=== PATIENT | male | born 1945 | race Asian ===

== ENCOUNTER 2019-10-03 02:48 | Inpatient (IN) | payer MEDICARE, OTHER ==
[~2019-10-03] VITALS: Ht 167.6 cm; Wt 70.4 kg
[~2019-10-03 02:48] MED LIST: LOPRESSOR 550 MG/TAB PO; NEXIUM40 MG PO
[2019-10-03] MEDS ORDERED: PROTONIX 40MG T40 MG PO (04:49)
[2019-10-03] MEDS ORDERED: CIALIS10 MG PO (04:50)
[2019-10-03] MEDS ORDERED: ASPIRIN 81M81 MG/TA2 PO ×2 (04:50→18:04)
[2019-10-03] MEDS ORDERED: CALCIUM CARB500 MG PO (04:51)
[2019-10-03] MEDS ORDERED: PRILOTC (04:52)
[2019-10-03] MEDS ORDERED: MAG-OX 400400 MG/TAB PO (04:53)
[2019-10-03] MEDS ORDERED: LIDODERM 5% PATC1 EA TP (04:54)
[2019-10-03] MEDS ORDERED: VOLTAREN GEL 1%1 TU (04:56)
[2019-10-03 05:00] VITALS: BP 128/75; PULSE 81; TEMP 98.3
[2019-10-03] MEDS ORDERED: LIPITOR 40MG TA40 MG PO (05:00)
[2019-10-03] MEDS ORDERED: XYOSTED100 MG/0.5 SQ (05:00)
[2019-10-03] MEDS ORDERED: ALAVERT10 M1 PO (05:01)
[2019-10-03] MEDS ORDERED: CLOTRIM ANTIFUNGAL1% TP (05:02)
[2019-10-03] MEDS ORDERED: COZAAR 25MG25 MG/TAB PO (05:03)
[2019-10-03] MEDS ORDERED: OMEGA-31 SGL PO (05:04)
[2019-10-03] MEDS ORDERED: HYGROTON 2525 MG/TAB (05:05)
[2019-10-03] MEDS ORDERED: VITAMIN D31000 I1 PO (05:05)
--- NOTE | 2019-10-03 05:25 | NUR ---
Pt arrive to the floor 0435 via stretcher. Pt ambulated to bed from stretcher. Pt stated he is not in pain. Pt has NG tube placed. Pt has his call light within reach.
--- NOTE | 2019-10-03 06:18 | NUR ---
Pt ambulated to the bathroom and was sittin gback in bed. I went to get the pt a new armband so I could scan his medictions. Pt began to cough as i was at the nurse station. When back to supply chain logistics manager pt NG tube and hang fluids and pt was holding his NG tube in his hand. Stated that he was so sorry but pulled it out by mistake. Report was given to DANIEL Gilmore and she was informed about the pt NG not in. Pt is currently sitting up in bed and has his call light within reach.
--- NOTE | 2019-10-03 06:55 | NUR ---
Reported off to DANIEL Gilmore. Pt is currently sitting up in bed awake. Pt has his call light within reach.
--- NOTE | 2019-10-03 07:01 | NUR ---
Lying in bed with eyes open. Patient explains that he was coughing earlier and when he went to blow his nose the NG tube came out. Patient denies pain or nausea at this time. Abd is rounded but soft, bowel sounds heard in all quadrants. Patient denies further needs at this time.
[2019-10-03 07:26] VITALS: BP 118/66; PULSE 83; TEMP 97.8
--- NOTE | 2019-10-03 08:27 | NUR ---
Patient up to bathroom, urinates and says that he passed a lot of gas. No bowel movement. Patient returns to bed. Denies needs at this time.
--- NOTE | 2019-10-03 09:46 | NUR ---
Patient up to bathroom. Was able to void and he says that he passed gas a couple times. Returns to bed. Voices no further needs at this time.
--- NOTE | 2019-10-03 09:58 | NUR ---
Job Interviewer met with patient to discuss discharge planning. Patient lives in [place] with his , Cindy (ph#[phone]). Patient receives primary care and medications from [facility]. Patient does not use any DME and reports independence with ADLS. Patient does not have Advance Directives and reports he needs to meet with an consumer attorney to set up a living will. Patient plans to return home upon discharge. SW will continue to follow for any discharge needs.
[2019-10-03 12:02] VITALS: BP 126/82; PULSE 83; TEMP 98.8
--- NOTE | 2019-10-03 12:58 | NUR ---
Lying in bed with eyes open watching TV and talking on cell phone. Denies pain or nausea. Explains that his stomach "feels tired like I worked out". Fresh ice chips provided. Patient denies further needs at this time.
--- NOTE | 2019-10-03 14:03 | NUR ---
Lying in bed with eyes closed. Respirations even and unlabored. No signs or symptoms of discomfort noted.
[2019-10-03 15:58] VITALS: BP 112/73; PULSE 86; TEMP 98.8
--- NOTE | 2019-10-03 16:11 | NUR ---
Lying in bed with eyes open. Denies pain, nausea, or vomiting. Says his stomach still feels like he "worked out". Patient denies needs at this time.
[2019-10-03 19:27] VITALS: BP 113/74; PULSE 86; TEMP 99.2
--- NOTE | 2019-10-03 20:00 | NUR ---
Received report from DANIEL Gilmore. Pt currently lying in bed sleeping pt has his call light within reach and his bed is in lowest position.
--- NOTE | 2019-10-03 21:35 | NUR ---
During shift assessment I asked pt if he takes any medications at night. He stated that he does not take any at night. After looking over his medications I did contact and asked if pt has medications that he usually take at night is it ok to have them start tonight. Dr. Vogt was ok with this. I called him at 2020. I went back into pt's room and asked him when does he usually take all of his medications. He stated he takes them all in the morning and he doesn't want to take any medications tonight. Pt vitals were assessed at this time and they were all within normal limits. Pt also stated that he usually doesn't take his medications every day. I informed him yaz while in the hospital he can refuse medications but we go by the medication list that he gives us. Pt did agree and was happy that I informed him that we had his mediction list. He is currently lying in bed. He states that he feels good. He has one small loose bowel movement tonight. He has been passing a lot of gas. Pt stated he would call if he needed something he has his call light within reach and his bed is in lowest position. Pt is independent in his room.
[2019-10-04] VITALS: BP 115/73; PULSE 74; TEMP 98.6
[2019-10-04 03:55] VITALS: BP 116/70; PULSE 80; TEMP 99.1
--- NOTE | 2019-10-04 06:26 | NUR ---
Pt has slept well during the night. Pt has been ambulating to the restroom during the night. Pt did have a small loose stool. Pt stated that he is not having pain and this time. He requested to have a warm blanket and he was given a blanket at this time. Pt has his call light within reach and his bed is in lowest positiion .
[2019-10-04 07:09] LABS: BASO % 0.2 % (0.0-2.0); EOS # 0.2 (0.0-0.7); EOS % 1.8 % (0-4.0); GRAN # 5.9 (1.4-6.5); HEMATOCRIT 39.9 % (42.0-52.0); HEMOGLOBIN 12.9 g/dl (13.5-18.0); LYMPH # 1.4 (1.2-3.4); LYMPH % 16.8 % (20.0-51.0); MEAN CELL VOLUME 94 fl (80.0-100.0); MEAN CORPUSCULAR HEMOGLOBIN 30 pg (27.0-31.0); MEAN CORPUSCULAR HGB CONC 32 g/dl (33.0-37.0); MONO # 0.7 (0.1-0.6); PLATELET COUNT 134 K/mm3 (130-400); RED BLOOD COUNT 4.25 M/mm3 (4.20-5.60); REDCELL DISTRIBUTION WIDTH-CV 14.7 % (11.5-14.5)
[2019-10-04 07:33] LABS: CALCIUM 8.3 mg/dL (8.4-10.2); CREATININE, serum 0.7 (0.66-1.25); POTASSIUM 3.2 mmol/L (3.4-5.0)
[2019-10-04 07:45] VITALS: BP 116/81; PULSE 58; TEMP 98.1
--- NOTE | 2019-10-04 08:41 | NUR ---
Patient sitting up at edge of bed eating breakfast. rounded orders received. Iv to Int. He is tolerating general diet tray. He denies nausea & pain. He denies shortness of breath. Martin reyna.
--- NOTE | 2019-10-04 09:24 | NUR ---
K+ replaced per orders. We again reviewed home med list, he is not completely sure of his home medications.
--- NOTE | 2019-10-04 11:04 | NUR ---
Patient going to take shower. continues with K+ replacement.
[2019-10-04 12:37] VITALS: BP 122/64; PULSE 79; TEMP 98
--- NOTE | 2019-10-04 15:34 | NUR ---
Patient ready for discharge. Dr. Diallo notified & orders obtained. We reviewed all paperwork. He denies questions & concerns. Patient freind here to pick him up.
== END 2019-10-04 15:35 | disposition home or self-care (01) | DRG 390 ==
LOC: SURG 02:48
PROVIDERS: ADMIT Surgery
DX: K56.609 Unspecified intestinal obstruction, unspecified as to partial versus complete obstruction (principal); I10 Essential (primary) hypertension; I25.10 Atherosclerotic heart disease of native coronary artery without angina pectoris; Z79.82 Long term (current) use of aspirin
CPT/HCPCS: J7120

== ENCOUNTER 2020-04-06 04:59 | Emergency (ER) | payer MEDICARE, OTHER ==
[~2020-04-06] VITALS: Ht 167.6 cm; Wt 70.9 kg
[~2020-04-06 04:59] MED LIST changes: +ALAVERT10 M1 PO; +ASPIRIN 81M81 MG/TA2 PO; +CALCIUM CARB500 MG PO; +CIALIS10 MG PO; +CLOTRIM ANTIFUNGAL1% TP; +COZAAR 25MG25 MG/TAB PO; +HYGROTON 2525 MG/TAB; +LIDODERM 5% PATC1 EA TP; +LIPITOR 40MG TA40 MG PO; +MAG-OX 400400 MG/TAB PO; +OMEGA-31 SGL PO; +PRILOTC; +PROTONIX 40MG T40 MG PO; +VITAMIN D31000 I1 PO; +VOLTAREN GEL 1%1 TU; +XYOSTED100 MG/0.5 SQ
[2020-04-06 05:08] VITALS: TEMP 98
[2020-04-06 09:06] LABS: BASO % 0.4 % (0.0-2.0); EOS # 0.2 (0.0-0.7); EOS % 2.4 % (0-4.0); GRAN # 6.1 (1.4-6.5); GRAN % 75.4 % (42.2-75.2); HEMATOCRIT 39.8 % (42.0-52.0); HEMOGLOBIN 13.3 g/dl (13.5-18.0); MEAN CELL VOLUME 91 fl (80.0-100.0); MEAN CORPUSCULAR HEMOGLOBIN 30 pg (27.0-31.0); MEAN CORPUSCULAR HGB CONC 33 g/dl (33.0-37.0); MEAN PLATELET VOLUME 10.2 fl (7.4-10.4); MONO # 0.7 (0.1-0.6); MONO % 8.4 % (1.7-9.3); PLATELET COUNT 111 K/mm3 (130-400); RED BLOOD COUNT 4.38 M/mm3 (4.20-5.60); REDCELL DISTRIBUTION WIDTH-CV 14.3 % (11.5-14.5)
[2020-04-06 09:13] LABS: INR 1.2 (0.8-3.0); PROTHROMBIN TIME 13.4 SECONDS (9.7-12.8)
[2020-04-06 09:15] LABS: ALBUMIN 4.1 gm/dL (3.5-5.0); BILIRUBIN,TOTAL 0.9 mg/dL (0.0-1.0); CALCIUM 8.8 mg/dL (8.4-10.2); CREATININE, serum 0.68 (0.66-1.25); POTASSIUM 3.3 mmol/L (3.4-5.0); TOTAL PROTEIN 7.2 gm/dL (6.4-8.2)
[2020-04-06 12:03] LABS: COLLECTION METHOD CLEAN CATCH
[2020-04-06 12:10] LABS: PH 6 (5-8); SQUAMOUS EPITHELIAL None Seen /hpf; URINE APPEARANCE Clear; URINE BACTERIA None Seen /hpf; URINE BILIRUBIN Negative (NEGATIVE); URINE BLOOD Negative (NEGATIVE); URINE COLOR Straw; URINE GLUCOSE Negative (NEGATIVE); URINE KETONE Negative (NEGATIVE); URINE LEUKOCYTE ESTERASE Negative (NEGATIVE); URINE NITRATE Negative (NEGATIVE); URINE PROTEIN(semi-quant) Negative (NEGATIVE); URINE RBC None Seen /hpf; URINE UROBILINOGEN Negative (NEGATIVE)
[2020-04-06 17:15] VITALS: BP 131/96; PULSE 95
== END 2020-04-06 17:15 | disposition short-term general hospital (02) ==
LOC: COL.ER 04:59
PROVIDERS: Family Medicine
DX: K86.89 Other specified diseases of pancreas (principal); Z79.82 Long term (current) use of aspirin
CPT/HCPCS: Q9967

== ENCOUNTER 2020-07-03 12:13 | Inpatient (IN) | payer MEDICARE, OTHER ==
[2020-07-03] VITALS (180 sets, daily range): BP systolic 71–148; BP diastolic 51–86; PULSE 90–145; TEMP 98.4–99.4; O2SAT 71–100
[~2020-07-03] VITALS: Ht 167.6 cm; Wt 70.9 kg
[2020-07-03] MEDS ORDERED: MIRALAX PA17 GM/Dose PO (12:38)
[2020-07-03] MEDS ORDERED: PRILOSEC 20MG20 MG PO (12:38)
[2020-07-03] MEDS ORDERED: COLACE 100100 MG/CAP PO (12:39)
--- NOTE | 2020-07-03 16:08 | NUR ---
Patient transferred down from surgical floor accompanied by Yevgeniy Rn and ramon RN. Bedside report given to Franchesca. Patient on bipap at 100%, labored breathing, HR is SR 160's, BP elevated but wrong size cuff was on. CUff replaced and BP was normal. at bedside putting orders in, and he updated the patients . was consulted and will more than likely intubate patient.
--- NOTE | 2020-07-03 16:30 | NUR ---
at bedside to place central line. consent recieved from patient. Vital signs running every 5 minutes, time out recorded at 1640 and procedure started. Central line successfully placed at 1650 and confirmed with cxray at 1655, ok to use per .
[2020-07-03 16:35] LABS: ALBUMIN 3.2 gm/dL (3.5-5.0); CALCIUM 8.2 mg/dL (8.4-10.2); CREATININE, serum 0.59 (0.66-1.25); POTASSIUM 3.9 mmol/L (3.4-5.0); TOTAL PROTEIN 6.3 gm/dL (6.4-8.2)
--- NOTE | 2020-07-03 16:49 | NUR ---
PT TO ROOM 348 FROM PACU WITH REPORT FROM NICOL. PT UNSTABLE AT HANDOFF. TRANSFERED TO ICU 6 WITH REPORT TO DAVIE SANCHEZ.
[2020-07-03 17:07] LABS: ARTERIAL BLD GAS O2 SATURATION 95.8 % (92-100); ARTERIAL BLD GAS TCO2 CT 22.3; ARTERIAL BLOOD GAS BASE EXCESS -7.3 (-2-2); ARTERIAL BLOOD GAS HCO3 20.7 meq/L (22-26); ARTERIAL BLOOD GAS PCO2 51.9 mmHg (35-45); ARTERIAL BLOOD GAS pH 7.22 (7.35-7.45)
--- NOTE | 2020-07-03 17:10 | NUR ---
ORDER RECIEVED FROM DR. MUIR TO PULL NG TUBE. COMPLETED AT TIME OF ORDER. 1527. PT TOLERATED WELL. RT PLACED PT ON BIPAP AT THAT TIME.
[2020-07-03 17:13] LABS: BASO # 0.1 (0.0-0.2); BASO % 0.4 % (0.0-2.0); EOS % 0.3 % (0-4.0); GRAN # 11.6 (1.4-6.5); GRAN % 78.4 % (42.2-75.2); HEMATOCRIT 43.1 % (42.0-52.0); HEMOGLOBIN 13.5 g/dl (13.5-18.0); LYMPH # 2.5 (1.2-3.4); LYMPH % 16.8 % (20.0-51.0); MEAN CELL VOLUME 99 fl (80.0-100.0); MEAN CORPUSCULAR HEMOGLOBIN 31 pg (27.0-31.0); MEAN CORPUSCULAR HGB CONC 31 g/dl (33.0-37.0); MEAN PLATELET VOLUME 9.8 fl (7.4-10.4); MONO # 0.5 (0.1-0.6); MONO % 3.5 % (1.7-9.3); PLATELET COUNT 309 K/mm3 (130-400); RED BLOOD COUNT 4.35 M/mm3 (4.20-5.60); REDCELL DISTRIBUTION WIDTH-CV 15.6 % (11.5-14.5)
[2020-07-03 17:38] LABS: ARTERIAL BLD GAS O2 SATURATION 95.9 % (92-100); ARTERIAL BLD GAS TCO2 CT 22.1; ARTERIAL BLOOD GAS BASE EXCESS -2.5 (-2-2); ARTERIAL BLOOD GAS HCO3 21.1 meq/L (22-26); ARTERIAL BLOOD GAS PCO2 33.3 mmHg (35-45); ARTERIAL BLOOD GAS PO2 79.6 mmHg (80-100); ARTERIAL BLOOD GAS pH 7.42 (7.35-7.45)
--- NOTE | 2020-07-03 17:45 | NUR ---
at bedside to see patient. He talked to patient about intubation, art line placement and bronchoscopy. Verbal consent from patient was witnessed by me and DANIEL Tesfaye. Patient requested talk to his son, Rome, who is a doctor. Patient has no questions at this time.
--- NOTE | 2020-07-03 18:10 | NUR ---
COMMUNICATIONS LEAD, Karen, is at bedside to intubate patient. RT also at bedside. 100 mg of Propofol given followed by 100 of succycholine. Karen got the ET tube down at 1820, confirmed with bilateral breath sounds in all four lung sagastume. Radiolog called for cxray. ET is a 7.5, 22 at the lip. Cxray confirmed placement at 1825.
[2020-07-03 18:19] LABS: INR 1.2 (0.8-3.0); PROTHROMBIN TIME 13.8 SECONDS (9.7-12.8)
--- NOTE | 2020-07-03 18:45 | NUR ---
Bronchoscopy stared with Vishnu Polanco at bedside as well as RT. GISELA Yen also at bedside to place ART line. 10 mg of vec given per . Bronch done at 1848, specimen sent to lab.
--- NOTE | 2020-07-03 19:30 | NUR ---
Received bedside report from DANIEL Cedeno. All medications verified and all questions answered. Patient intubated and sedated in supine position. Patient on fentanyl, levophed, propofol. All VSS. Will resume care at this time.
--- NOTE | 2020-07-03 20:28 | NUR ---
Dr. Shelley called for update on patient. Nurse updated physician on patient status. No new orders at this time. Daphney stated he would be by in the morning to check on patient.
--- NOTE | 2020-07-03 23:04 | NUR ---
Patient hourly BG checks at 2100 and 2200 less than 180, order changed to Q4 hour glucose checks on low sliding scale.
[2020-07-04] VITALS (607 sets, daily range): BP systolic 72–137; BP diastolic 40–70; PULSE 90–105; TEMP 98.1–100; O2SAT 92–100
--- NOTE | 2020-07-04 00:53 | NUR ---
Patient had 1+ edema in BLE during 1999 assessment. During assessment nurse noted 3-4+ pitting edema in BLE. Nurse called BERTIN and spoke with education diagnostician providers nurse and stated patient is on sepsis protocol and received 2L NS bolus and is now alternating LR and NS at 150mls/hr. Stated BP is stable with current dose of levophed gtt running at 0.2mcg/kg/min or 50.6mls/hr. [facility] nurse stated she would relay information to education diagnostician physician. No new orders placed at this time.
[2020-07-04 00:56] LABS: ARTERIAL BLOOD GAS BASE EXCESS -4.4 (-2-2); ARTERIAL BLOOD GAS HCO3 19.5 meq/L (22-26); ARTERIAL BLOOD GAS PCO2 32.1 mmHg (35-45); ARTERIAL BLOOD GAS PO2 89.5 mmHg (80-100)
[2020-07-04 00:57] LABS: ARTERIAL BLD GAS O2 SATURATION 89.5 % (92-100)
--- NOTE | 2020-07-04 01:46 | NUR ---
Received orders from Dr. Adrian from [facility] to IN alternating LR/NS at 150mls/hr and change patient to NS at 50mls/hr.
[2020-07-04 05:25] LABS: MEAN CELL VOLUME 97 fl (80.0-100.0); MEAN CORPUSCULAR HGB CONC 33 g/dl (33.0-37.0); MEAN PLATELET VOLUME 9.5 fl (7.4-10.4); PLATELET COUNT 232 K/mm3 (130-400); RED BLOOD COUNT 3.49 M/mm3 (4.20-5.60); REDCELL DISTRIBUTION WIDTH-CV 15.9 % (11.5-14.5)
[2020-07-04 05:28] LABS: ARTERIAL BLD GAS O2 SATURATION 97.9 % (92-100); ARTERIAL BLOOD GAS BASE EXCESS -4.1 (-2-2); ARTERIAL BLOOD GAS HCO3 20.3 meq/L (22-26); ARTERIAL BLOOD GAS PO2 107.2 mmHg (80-100); ARTERIAL BLOOD GAS pH 7.38 (7.35-7.45)
[2020-07-04 05:29] LABS: HEMATOCRIT 33.9 % (42.0-52.0); HEMOGLOBIN 11.1 g/dl (13.5-18.0); MEAN CORPUSCULAR HEMOGLOBIN 32 pg (27.0-31.0)
[2020-07-04 05:36] LABS: ALBUMIN 2.3 gm/dL (3.5-5.0); BILIRUBIN,TOTAL 0.9 mg/dL (0.0-1.0); CALCIUM 7.2 mg/dL (8.4-10.2); CREATININE, serum 0.75 (0.66-1.25); MAGNESIUM 1.7 mg/dL (1.6-2.3); POTASSIUM 4.1 mmol/L (3.4-5.0); TOTAL PROTEIN 4.8 gm/dL (6.4-8.2)
[2020-07-04 05:43] LABS: BAND 59 % (0-10); LYMPHOCYTE 4 % (20.0-51.0); METAMYELOCYTE 1 % (0-0); MYELOCYTE 2 % (0-0); NEUTROPHILS 25 % (42.0-75.2); PLATELET ESTIMATE NORMAL (NORMAL)
--- NOTE | 2020-07-04 05:45 | NUR ---
Patient started on sedation vacation at 0545. Fentanyl and propofol rate decreased by half. Fentanyl at 1.3mls/hr and propofol at 10.1mls/hr. Patient withdraws from pain and is able to squeeze hands but unable to follow other commands. Patient appears calm and relaxed. VSS.
--- NOTE | 2020-07-04 06:49 | NUR ---
Patient appears relaxed and calm. Fentanyl and propofol rates not changed since beginning the sedation vacation. VS remain stable throughout sedation vacation. Will pass on report to day shift nurse.
--- NOTE | 2020-07-04 07:00 | NUR ---
RECEIVED REPORT FROM DANIEL PENA. ASSUMED CARE OF PT AT THIS TIME.
[2020-07-05] VITALS (684 sets, daily range): BP systolic 80–134; BP diastolic 54–78; PULSE 78–101; TEMP 97.9–98.9; O2SAT 79–100
[2020-07-05 05:00] LABS: BASO % 0.2 % (0.0-2.0); EOS # 0.1 (0.0-0.7); EOS % 0.3 % (0-4.0); GRAN # 13.9 (1.4-6.5); GRAN % 84.5 % (42.2-75.2); HEMOGLOBIN 10.3 g/dl (13.5-18.0); LYMPH # 0.6 (1.2-3.4); LYMPH % 3.6 % (20.0-51.0); MEAN CELL VOLUME 98 fl (80.0-100.0); MEAN CORPUSCULAR HEMOGLOBIN 31 pg (27.0-31.0); MEAN CORPUSCULAR HGB CONC 32 g/dl (33.0-37.0); MEAN PLATELET VOLUME 9.8 fl (7.4-10.4); MONO # 1.7 (0.1-0.6); MONO % 10.2 % (1.7-9.3); PLATELET COUNT 152 K/mm3 (130-400); RED BLOOD COUNT 3.28 M/mm3 (4.20-5.60)
[2020-07-05 05:08] LABS: ALBUMIN 2.2 gm/dL (3.5-5.0); CALCIUM 7.2 mg/dL (8.4-10.2); CREATININE, serum 0.64 (0.66-1.25); INR 1.6 (0.8-3.0); POTASSIUM 3.5 mmol/L (3.4-5.0); PROTHROMBIN TIME 18.3 SECONDS (9.7-12.8); TOTAL PROTEIN 4.7 gm/dL (6.4-8.2)
[2020-07-05 05:14] LABS: ARTERIAL BLD GAS O2 SATURATION 96.2 % (92-100); ARTERIAL BLD GAS TCO2 CT 23.3; ARTERIAL BLOOD GAS BASE EXCESS -1.9 (-2-2); ARTERIAL BLOOD GAS HCO3 22.2 meq/L (22-26); ARTERIAL BLOOD GAS PCO2 35.7 mmHg (35-45); ARTERIAL BLOOD GAS PO2 81.7 mmHg (80-100); ARTERIAL BLOOD GAS pH 7.41 (7.35-7.45)
--- NOTE | 2020-07-05 05:59 | NUR ---
Sedation returned to pre-sedation vacation level per titration protocol, pt able to open eyes, follow commands, use nonverbal communication to express abdominal pain and no other pain or needs required at this moment. Pt still requiring levophed gtt, if gtt interrupted BP quickly drops to systolic 60-70's. After gtt restated BP rapidly improves.
--- NOTE | 2020-07-05 07:30 | NUR ---
RECEIVED REPORT FROM DANIEL ADAMS. PATIENT TOLERATING VENT SETTINGS @ TV:450, MODE: 24, PEEP: 8, FiO2:30%, AND ETT NOTED @ 25 @ LIP. MANAGER [employer]ANCE IN PLACE. OGT NOTED @ 55CM WITH TUBE FEED @ 20mL/HR. FC PATENT AND DRAINING TO GRAVITY. ART LINE NOTED TO L RADIAL. VSS. SEE GTT FLOWSHEET.
--- NOTE | 2020-07-05 08:30 | NUR ---
RESIDUAL 0mL, TF INCREASED TO 30mL AN HOUR PER ORDERS.
--- NOTE | 2020-07-05 11:36 | NUR ---
SPOKE TO DR. FINN REGARD PATIENT'S IVF, POTASSIUM REPLACEMENT AND ELIMINATION NEEDS. SEE eMAR FOR NEW ORDERS.
--- NOTE | 2020-07-05 16:30 | NUR ---
RESIDUAL AT 10mL, TUBE FEED INCREASED TO 40mL AN HOUR PER ORDERS.
--- NOTE | 2020-07-05 16:56 | NUR ---
SW complete intake with spouse with call placed to [facility] [phone]. Spouse states patient and she live in [place]. PCP is Dr. Jayy Brooks in [place], medications from [place], and is able to afford his medications at this time. Spouse states that he recieves assistance from her usually for taking baths and assistance at times with walking, but will not use a walker or cane. Spouse states patient will not listen, but needs some assistance if he is able to leave the hospital to come home. SW will continue to follow.
--- NOTE | 2020-07-05 21:25 | NUR ---
Interventions documented at 2121 were performed at 1930.
--- NOTE | 2020-07-05 21:27 | NUR ---
Report recived from Demarco Tesfaye. Patient has fentanyl at 50, propofol at 25, Levophed at 0.11. His blood pressure is 127/54, heart rate at 84 NSR, and is sating 96%. The vent settings are: TV- 450; Peep-8; Fi02-30%; and a rate of 24. He is sedated but easily arousable. Blood sugar is 193. Tube feeding residual was 15. Tube feeding running at 40 cc/hr.
[2020-07-06] VITALS (786 sets, daily range): BP systolic 130–148; BP diastolic 66–92; PULSE 74–86; TEMP 98.2–99; O2SAT 94–100
[2020-07-06 04:30] LABS: HEMOGLOBIN 10.8 g/dl (13.5-18.0); MEAN CELL VOLUME 97 fl (80.0-100.0); MEAN CORPUSCULAR HEMOGLOBIN 32 pg (27.0-31.0); MEAN CORPUSCULAR HGB CONC 33 g/dl (33.0-37.0); PLATELET COUNT 153 K/mm3 (130-400); RED BLOOD COUNT 3.39 M/mm3 (4.20-5.60); REDCELL DISTRIBUTION WIDTH-CV 16.2 % (11.5-14.5)
[2020-07-06 04:41] LABS: ALBUMIN 2.3 gm/dL (3.5-5.0); CALCIUM 7.7 mg/dL (8.4-10.2); CREATININE, serum 0.55 (0.66-1.25); MAGNESIUM 2.3 mg/dL (1.6-2.3); PHOSPHOROUS 2.2 mg/dL (2.5-4.5); POTASSIUM 3.8 mmol/L (3.4-5.0)
[2020-07-06 04:48] LABS: PRE ALBUMIN 4.3 mg/dL (17.6-36.0)
[2020-07-06 04:49] LABS: ANISOCYTOSIS 1+; BAND 15 % (0-10); LYMPHOCYTE 5 % (20.0-51.0); NEUTROPHILS 77 % (42.0-75.2); OVALOCYTES 1+; POIKILOCYTOSIS 1+
[2020-07-06 04:50] LABS: BURR CELLS 1+; PLATELET ESTIMATE NORMAL (NORMAL); STOMATOCYTE 1+
[2020-07-06 05:10] LABS: ARTERIAL BLD GAS O2 SATURATION 96.3 % (92-100); ARTERIAL BLD GAS TCO2 CT 23.5; ARTERIAL BLOOD GAS BASE EXCESS -1.6 (-2-2); ARTERIAL BLOOD GAS HCO3 22.4 meq/L (22-26); ARTERIAL BLOOD GAS PCO2 35.2 mmHg (35-45); ARTERIAL BLOOD GAS PO2 84.8 mmHg (80-100); ARTERIAL BLOOD GAS pH 7.42 (7.35-7.45)
--- NOTE | 2020-07-06 05:45 | NUR ---
Pt tolerated CPAP 8 with PS as low as 6 for approx 10-15 minutes this morning while on sedation vacation. Pt's breaths became less consistant, many large volumes greather than 1000ml followed by a few breaths less than 150ml. Transitioned pt back to AC/VC after inconsistancy continued for a couple minutes. RN resumed sedation.
--- NOTE | 2020-07-06 06:43 | NUR ---
Lexis had an uneventful night. He tolerated his Vent settings very well. He is TV- 450; Peep of 8, Fi02 30%; rate of 24 on Assist control. He is on Fentanuyl of 50 mcg/hr; propofol at 20 mcg/kg/min; levophed at 0.07mcg/kg/min. His current blood pressure through the art line is 128/67 and the last BP cuff reading is 131/80. His art line flushes well and is at the 300 jenny. I tried titrating down on his levophed more but his blood pressure tends to drop very quickly so but 0.07 seems to be a good rate. When I attempted 0.06 his blood pressure immediently dropped to 90/50's so I increased it back to 0.07. His breathing trial went pretty well this morning, RT stated he took about 15 breaths a minute for about 15 minutes but then the rate started to decline. He got very agitated and we resumed the sedation. His current vitals are HR- 80; 02 Saturation 98%. RR 24, BP 131/69.
--- NOTE | 2020-07-06 17:50 | NUR ---
1700- Pt sedation was decreased for sedation vacation. 1734- PT is very agitated and not able to be consoled. Sedation is increased by one titration at this time. 1750- Pt appears to be comfortable. Will open eyes to name.
--- NOTE | 2020-07-06 19:04 | NUR ---
Report given to DANIEL Alatorre. Care relinquished at this time.
--- NOTE | 2020-07-06 20:00 | NUR ---
Assessment complete. Pt is on the ventilator. ETT is intact. LIJ TL is intact. RW INT is intact. Culver to DD is intact. OG tube is intact. 2SW restraints remain in place with good CMS in hands. Pt repositioned in bed. Call light within reach.
[2020-07-07] VITALS (640 sets, daily range): BP systolic 112–135; BP diastolic 57–85; PULSE 78–99; TEMP 98.4–99.5; O2SAT 91–100
[2020-07-07 04:43] LABS: HEMOGLOBIN 10.6 g/dl (13.5-18.0); MEAN CELL VOLUME 97 fl (80.0-100.0); MEAN CORPUSCULAR HEMOGLOBIN 31 pg (27.0-31.0); MEAN CORPUSCULAR HGB CONC 32 g/dl (33.0-37.0); MEAN PLATELET VOLUME 9.9 fl (7.4-10.4); PLATELET COUNT 180 K/mm3 (130-400); RED BLOOD COUNT 3.38 M/mm3 (4.20-5.60); REDCELL DISTRIBUTION WIDTH-CV 16.1 % (11.5-14.5)
[2020-07-07 04:46] LABS: HEMATOCRIT 32.9 % (42.0-52.0)
[2020-07-07 04:59] LABS: CALCIUM 7.4 mg/dL (8.4-10.2); CREATININE, serum 0.57 (0.66-1.25); POTASSIUM 4.2 mmol/L (3.4-5.0)
[2020-07-07 05:38] LABS: BAND 6 % (0-10); LYMPHOCYTE 11 % (20.0-51.0); NEUTROPHILS 80 % (42.0-75.2)
[2020-07-07 05:39] LABS: ANISOCYTOSIS 1+; HYPOCHROMIA 1+; PLATELET ESTIMATE NORMAL (NORMAL)
[2020-07-07 05:57] LABS: ARTERIAL BLD GAS O2 SATURATION 95.7 % (92-100); ARTERIAL BLD GAS TCO2 CT 27.5; ARTERIAL BLOOD GAS BASE EXCESS 2.1 (-2-2); ARTERIAL BLOOD GAS HCO3 26.3 meq/L (22-26); ARTERIAL BLOOD GAS PCO2 39.4 mmHg (35-45); ARTERIAL BLOOD GAS pH 7.44 (7.35-7.45)
--- NOTE | 2020-07-07 10:40 | NUR ---
Athletic Equipment Manager staffed with the patient's nurse. The patient remains intubated and to have a CPAP trial this day. SW contacted the patient's , Shirin to introduce oneself and provide an update.
--- NOTE | 2020-07-07 19:08 | NUR ---
Report given to DANIEL Alatorre.
--- NOTE | 2020-07-07 20:00 | NUR ---
Assessment complete. Pt is on ventilator. ETT is intact. LIJ TL is intact. RW INT is intact. OG tube is intact. Culver to DD is intact. 2SW restaints are in place with good CMS to hands. Pt had a large loose BM; pericare provided. Pt repositioned in bed. Call light within reach.
[2020-07-08] VITALS (656 sets, daily range): BP systolic 109–143; BP diastolic 60–78; PULSE 88–115; TEMP 97.2–99.7; O2SAT 73–100
[2020-07-08 05:45] LABS: ARTERIAL BLD GAS O2 SATURATION 96.4 % (92-100); ARTERIAL BLD GAS TCO2 CT 28.2; ARTERIAL BLOOD GAS PO2 81.3 mmHg (80-100); ARTERIAL BLOOD GAS pH 7.46 (7.35-7.45)
[2020-07-08 05:53] LABS: BASO % 0.2 % (0.0-2.0); GRAN # 7.3 (1.4-6.5); GRAN % 81.9 % (42.2-75.2); LYMPH # 0.4 (1.2-3.4); LYMPH % 4.8 % (20.0-51.0); MEAN CELL VOLUME 98 fl (80.0-100.0); MEAN CORPUSCULAR HGB CONC 32 g/dl (33.0-37.0); MONO # 0.7 (0.1-0.6); PLATELET COUNT 109 K/mm3 (130-400); RED BLOOD COUNT 2.89 M/mm3 (4.20-5.60); REDCELL DISTRIBUTION WIDTH-CV 16.2 % (11.5-14.5)
[2020-07-08 06:02] LABS: CALCIUM 7.3 mg/dL (8.4-10.2); CREATININE, serum 0.59 (0.66-1.25)
[2020-07-08 06:04] LABS: HEMATOCRIT 28.4 % (42.0-52.0); MEAN CORPUSCULAR HEMOGLOBIN 31 pg (27.0-31.0)
--- NOTE | 2020-07-08 06:31 | NUR ---
PT IS ON WEAN TRIAL JOSE EDUARDO WELL WITH NO DISTRESS NOTED AT THIS TIME. 5 OF PRESSURE SUPPORT.
--- NOTE | 2020-07-08 07:00 | NUR ---
Report received from DANIEL Alatorre. Patient sedation is cut in half and he is on weaning trial doing well.
--- NOTE | 2020-07-08 07:33 | NUR ---
Bedside shift report given to DANIEL Mcdermott.
[2020-07-08 08:41] LABS: ARTERIAL BLD GAS O2 SATURATION 94.4 % (92-100); ARTERIAL BLD GAS TCO2 CT 28.7; ARTERIAL BLOOD GAS BASE EXCESS 3.4 (-2-2); ARTERIAL BLOOD GAS HCO3 27.5 meq/L (22-26); ARTERIAL BLOOD GAS PCO2 39.8 mmHg (35-45); ARTERIAL BLOOD GAS pH 7.46 (7.35-7.45)
--- NOTE | 2020-07-08 09:00 | NUR ---
Dr. Mares see's patient and gives order to switch back to Assist Control mode d/t tachypnea with RR in high 30s. Patient also had another large loose stool and Dr. Mares gives order to place rectal tube for liquid stools.
--- NOTE | 2020-07-08 14:00 | NUR ---
Update given to Daughter, Margot. All questions answered and she is placed on speaker phone so she can talk to the patient.
[2020-07-08 16:19] LABS: CLOSTRIDIUM DIFF A/B NEG; CLOSTRIDIUM DIFF A/B INTERP No C.diff present
--- NOTE | 2020-07-08 19:05 | NUR ---
Report given to DANIEL Roberts.
--- NOTE | 2020-07-08 19:10 | NUR ---
Received report from DANIEL Mcdermott. Patient resting comfortably in bed at this time. Verified vent settings and sedation pumps at bedside. All vitals within normal limits. Bed in lowest position; all alarms on. No further needs noted.
[2020-07-09] VITALS (767 sets, daily range): BP systolic 127–182; BP diastolic 76–108; PULSE 84–121; TEMP 98.3–100.3; O2SAT 64–100
[2020-07-09 04:32] LABS: ARTERIAL BLD GAS O2 SATURATION 95.9 % (92-100); ARTERIAL BLD GAS TCO2 CT 29.7; ARTERIAL BLOOD GAS BASE EXCESS 4.4 (-2-2); ARTERIAL BLOOD GAS HCO3 28.5 meq/L (22-26); ARTERIAL BLOOD GAS PCO2 40.4 mmHg (35-45); ARTERIAL BLOOD GAS PO2 71.7 mmHg (80-100); ARTERIAL BLOOD GAS pH 7.47 (7.35-7.45)
[2020-07-09 04:46] LABS: MEAN CELL VOLUME 99 fl (80.0-100.0); MEAN CORPUSCULAR HGB CONC 32 g/dl (33.0-37.0); PLATELET COUNT 105 K/mm3 (130-400); RED BLOOD COUNT 3.04 M/mm3 (4.20-5.60); REDCELL DISTRIBUTION WIDTH-CV 16.7 % (11.5-14.5)
[2020-07-09 04:48] LABS: HEMOGLOBIN 9.5 g/dl (13.5-18.0); MEAN CORPUSCULAR HEMOGLOBIN 31 pg (27.0-31.0)
[2020-07-09 04:59] LABS: CALCIUM 7.4 mg/dL (8.4-10.2); CREATININE, serum 0.55 (0.66-1.25); POTASSIUM 3.5 mmol/L (3.4-5.0)
[2020-07-09 05:14] LABS: BAND 3 % (0-10); LYMPHOCYTE 20 % (20.0-51.0); NEUTROPHILS 66 % (42.0-75.2); NUCLEATED RED BLOOD CELL 5 (0-6); PLATELET ESTIMATE DECREASED (NORMAL)
[2020-07-09 05:15] LABS: ANISOCYTOSIS 1+; HYPOCHROMIA 2+
--- NOTE | 2020-07-09 05:59 | NUR ---
PT ON WEAN TRIAL JOSE EDUARDO WELL WITH NO DISTRESS NOTED AT THIS TIME
--- NOTE | 2020-07-09 09:50 | NUR ---
PT EXTUBATED OPER VORB FROM DR HAYNES. PT EXTUBATE TO 3L OXYMASK, AND AT THIS TIME IS STABLE. WILL CONTINUE TO MONITOR PT FOR CHANGES.
--- NOTE | 2020-07-09 13:23 | NUR ---
The patient is now extubated. PT/OT ordered.
--- NOTE | 2020-07-09 17:39 | NUR ---
PT extubated at 0847 this am. PT has been tolerating well with oxygen via NC. PT was able to walk with therapy today with a walker and gait belt. Currently patient c/o is back pain. PT states at home he uses "eletrical pulses" to help his pain. PT states his pain is from being in the [employer]. Pt is currently on 2L NC SPO2 of 97%.
--- NOTE | 2020-07-09 19:00 | NUR ---
Received report from DANIEL De La Cruz.
--- NOTE | 2020-07-09 19:14 | NUR ---
Pt report given to DANIEL Roberts. care relinquished at this time.
--- NOTE | 2020-07-09 21:30 | NUR ---
Patient's LIJ central line dressing noted to be peeling significantly at the edges. Dressing changed. Patient's linens also exchanged at this time. Denies any pain or discomfort. All vitals within normal limits. Patient on 0.5L oxygen via nasal cannula with oxygen saturations low-mid 90s. Tolerating well. No further needs noted.
[2020-07-10] VITALS (480 sets, daily range): BP systolic 140–154; BP diastolic 84–110; PULSE 97–108; TEMP 98.3–99.8; O2SAT 83–99
[2020-07-10 04:21] LABS: HEMOGLOBIN 10.4 g/dl (13.5-18.0); MEAN CORPUSCULAR HEMOGLOBIN 31 pg (27.0-31.0); MEAN CORPUSCULAR HGB CONC 33 g/dl (33.0-37.0); MEAN PLATELET VOLUME 10.3 fl (7.4-10.4); PLATELET COUNT 108 K/mm3 (130-400); RED BLOOD COUNT 3.33 M/mm3 (4.20-5.60); REDCELL DISTRIBUTION WIDTH-CV 16.7 % (11.5-14.5)
[2020-07-10 04:24] LABS: HEMATOCRIT 31.4 % (42.0-52.0); MEAN CELL VOLUME 94 fl (80.0-100.0)
[2020-07-10 04:30] LABS: CALCIUM 7.5 mg/dL (8.4-10.2); CREATININE, serum 0.53 (0.66-1.25); POTASSIUM 3.4 mmol/L (3.4-5.0)
[2020-07-10 04:42] LABS: BAND 20 % (0-10); EOSINOPHIL 1 % (0-4); LYMPHOCYTE 11 % (20.0-51.0); METAMYELOCYTE 3 % (0-0); NEUTROPHILS 59 % (42.0-75.2); POIKILOCYTOSIS 1+
[2020-07-10 04:43] LABS: ANISOCYTOSIS 1+; HYPOCHROMIA 1+; OVALOCYTES 1+; PLATELET ESTIMATE DECREASED (NORMAL)
--- NOTE | 2020-07-10 09:26 | NUR ---
Cristina with AE called stating pt had called her and he was concerned about insurance. [facility] had [facility] and [facility] had not been [facility] of [facility]. I spoke with Cristina on the phone-pt has MCR A/B as primary and for life. I told her we would not notify [facility] with MCR being primary. I then spoke with Mr. Dodson concerning this and answered all of his questions. He voiced understanding about his insurance coverage.
--- NOTE | 2020-07-10 10:17 | NUR ---
CONTACTED DR. HOWE TO ASK WHETHER PT CAN ADVANCE DIET FROM CLEAR LIQUID. STATES HE WILL VISIT PATIENT TODAY.
--- NOTE | 2020-07-10 12:20 | NUR ---
RECTAL TUBE LEAKING. REMOVED AT THIS TIME PER DR. HINKLE ORDERS. PT UP TO BEDSIDE COMMODE X2 ASSIST WITH STEADY GAIT USING GAIT BELT. OCCUPATION THERAPY WITH PT AND ASSISTED WITH SHAVING AND BRUSHING TEETH.
[2020-07-10] MEDS ORDERED: VITAMIN D31000 I1 PO (14:41)
[2020-07-10] MEDS ORDERED: ASPIRIN E.C. 8181 MG PO (14:42)
[2020-07-10] MEDS ORDERED: COZAAR 25MG25 MG/TAB PO (14:42)
[2020-07-10] MEDS ORDERED: LIPITOR 80MG80 MG PO (14:42)
[2020-07-10] MEDS ORDERED: OMEGA-3 1000 MG1 CAP PO (14:43)
[2020-07-10] MEDS ORDERED: HYGROTON 2525 MG/TAB PO (14:43)
[2020-07-10] MEDS ORDERED: K-TAB20 PO (14:44)
[2020-07-10] MEDS ORDERED: FLOMAX 0.40.4 MG/CAP PO (14:44)
[2020-07-10] MEDS ORDERED: CALCIUM 600 PLU1 TAB PO (14:44)
[2020-07-10] MEDS ORDERED: COMPAZINE 110 MG/TAB PO (14:45)
--- NOTE | 2020-07-10 15:29 | NUR ---
LEFT IJ CENTRAL LINE REMOVED PER DR. HAYNES. PRESSURE HELD TO SITE X5 MINUTES. CATHETER INTACT ON REMOVAL. ACCESSED PT'S PORT-A-CATH TO RIGHT SIDE OF CHEST WITH 19G 3/4IN NEEDLE. BLOOD RETURN NOTED AND FLUSHES WITHOUT RESISTANCE.
--- NOTE | 2020-07-10 15:34 | NUR ---
The patient continues to make progress with PT.
--- NOTE | 2020-07-10 16:30 | NUR ---
ROWLEY CATHETER REMOVED AT THIS TIME PER ORDER.
--- NOTE | 2020-07-10 18:15 | NUR ---
PT TRANSFERRED TO ROOM 351 VIA W/C ON 2L NC. TELEMETRY IN PLACE. DANIEL ARCOS AWARE OF PT ARRIVAL. DINNER TRAY DELIVERED TO ROOM 351.
--- NOTE | 2020-07-10 20:30 | NUR ---
Initial shift assessment done- VSS, Tele on, o2 at 2L/nc, states back is sore-- has heating pad to back,, Up to BSC with assist- very weak on feet- did have liquid, loose stool. Back to bed. Port to right chest. O2 at 2L/nc,
[2020-07-11 03:47] VITALS: BP 146/80; PULSE 82; TEMP 98.7
--- NOTE | 2020-07-11 06:00 | NUR ---
Did not sleep much during the night-- voiding well per urinal-- Did call Eleni AGUILAR during the night for pain meds- pt stated back pain was 02/14-- Mozier was ordered- was given one and did rest after that--- blood sugars very stable throughout the night- VSS
[2020-07-11 06:43] LABS: MEAN CELL VOLUME 98 fl (80.0-100.0); MEAN CORPUSCULAR HGB CONC 32 g/dl (33.0-37.0); MEAN PLATELET VOLUME 10.7 fl (7.4-10.4); PLATELET COUNT 106 K/mm3 (130-400); RED BLOOD COUNT 3.03 M/mm3 (4.20-5.60); REDCELL DISTRIBUTION WIDTH-CV 16.9 % (11.5-14.5)
[2020-07-11 06:56] LABS: CALCIUM 7.3 mg/dL (8.4-10.2); CREATININE, serum 0.57 (0.66-1.25); HEMATOCRIT 29.6 % (42.0-52.0); HEMOGLOBIN 9.6 g/dl (13.5-18.0); MEAN CORPUSCULAR HEMOGLOBIN 32 pg (27.0-31.0); POTASSIUM 3.4 mmol/L (3.4-5.0)
--- NOTE | 2020-07-11 08:15 | NUR ---
Shift assessment complete. Bed bath given and full bed change done. Pt up to chair eating breakfast at this time. A&Ox4. Heart RRR. Lungs CTA. NC at 2 lpm O2 with sats stable. Port to right chest w/o S/S complication, flushes well and good blood return. K pad in place to lower back due to chronic low back pain rated 4/10. Gauze/tegaderm over right IJ incision, dressing CDI. Pt denies needs. Call light in reach.
[2020-07-11 08:57] VITALS: BP 135/72; PULSE 90; TEMP 98.1
[2020-07-11 10:06] LABS: ANISOCYTOSIS 1+; BAND 7 % (0-10); EOSINOPHIL 2 % (0-4); HYPOCHROMIA 1+; LYMPHOCYTE 7 % (20.0-51.0); METAMYELOCYTE 1 % (0-0); MYELOCYTE 1 % (0-0); NEUTROPHILS 72 % (42.0-75.2); PLATELET ESTIMATE DECREASED (NORMAL)
[2020-07-11 13:23] VITALS: BP 130/80; PULSE 96; TEMP 98.3
[2020-07-11 16:30] VITALS: BP 127/81; PULSE 104; TEMP 97.9
--- NOTE | 2020-07-11 17:43 | NUR ---
Chronic back pain adequately relieved today with k pad and one administration of norco. Remains on 2 lpm O2 NC. No other complaints today.
[2020-07-11 20:00] VITALS: BP 131/81; PULSE 101; TEMP 98.8
--- NOTE | 2020-07-11 20:30 | NUR ---
Initial shift assessment done- states pain to back 08/15 at this time-- has on heating pad, has 1+ edema to lower extremities, has been up in chair-- now will get back to bed, o2 at 2L/nc, Tele on, kylee cath to right chest.
[2020-07-12] VITALS (7 sets, daily range): BP systolic 115–130; BP diastolic 73–86; PULSE 94–111; TEMP 98.2–99.4
--- NOTE | 2020-07-12 06:14 | NUR ---
Slept well last night, was medicated x2 with [place] during the night for back pain-- did use his TENS unit from home a few times during the night with good results for pain control,VSS
[2020-07-12 06:29] LABS: MEAN CELL VOLUME 94 fl (80.0-100.0); MEAN CORPUSCULAR HGB CONC 33 g/dl (33.0-37.0); MEAN PLATELET VOLUME 10.9 fl (7.4-10.4); PLATELET COUNT 129 K/mm3 (130-400); RED BLOOD COUNT 3.22 M/mm3 (4.20-5.60); REDCELL DISTRIBUTION WIDTH-CV 16.3 % (11.5-14.5)
[2020-07-12 06:30] LABS: CALCIUM 7.6 mg/dL (8.4-10.2); CREATININE, serum 0.55 (0.66-1.25); POTASSIUM 3.1 mmol/L (3.4-5.0)
[2020-07-12 06:33] LABS: HEMATOCRIT 30.3 % (42.0-52.0); HEMOGLOBIN 9.9 g/dl (13.5-18.0); MEAN CORPUSCULAR HEMOGLOBIN 31 pg (27.0-31.0)
--- NOTE | 2020-07-12 07:50 | NUR ---
Shift assessment complete. Pt assisted x1 to chair, up eating breakfast at this time. Reports adequate pain relief from combination of norco, TENS unit, and kpad. Heart RRR. Lungs CTA. A&Ox4. Left IJ dressing CDI. Remains on 2 lpm O2 NC. Denies other needs at this time. Continuing to monitor.
[2020-07-12 08:55] LABS: ANISOCYTOSIS 1+; BAND 3 % (0-10); LYMPHOCYTE 6 % (20.0-51.0); METAMYELOCYTE 1 % (0-0); NEUTROPHILS 87 % (42.0-75.2); PLATELET ESTIMATE DECREASED (NORMAL)
--- NOTE | 2020-07-12 17:37 | NUR ---
[place] given for pain x1 this shift. Pain adequately controlled with TENS unit and k-pad for most of the day per pt report. Blood sugars and vitals remain stable. Pt titrated off O2 this afternoon with sats remaining above 93%.
[2020-07-13 03:41] VITALS: BP 126/74; PULSE 98; TEMP 98.7
--- NOTE | 2020-07-13 06:38 | NUR ---
PATIENT RESTED IN BED THROUGHOUT THE NIGHT. PRN NORCO ADMINISTERE X'2 FOR LOWER BACK PAIN. NO NEW ISSUES NOTED OR REPORTED BY PATIENT.
[2020-07-13 06:49] LABS: MEAN CELL VOLUME 96 fl (80.0-100.0); MEAN CORPUSCULAR HGB CONC 33 g/dl (33.0-37.0); MEAN PLATELET VOLUME 10.9 fl (7.4-10.4); PLATELET COUNT 125 K/mm3 (130-400); RED BLOOD COUNT 3.02 M/mm3 (4.20-5.60); REDCELL DISTRIBUTION WIDTH-CV 16.2 % (11.5-14.5)
[2020-07-13 06:59] LABS: ALBUMIN 2.3 gm/dL (3.5-5.0); BILIRUBIN,TOTAL 1.2 mg/dL (0.0-1.0); CALCIUM 7.6 mg/dL (8.4-10.2); CREATININE, serum 0.53 (0.66-1.25); POTASSIUM 3.2 mmol/L (3.4-5.0)
[2020-07-13 07:06] LABS: PRE ALBUMIN 8.3 mg/dL (17.6-36.0)
[2020-07-13 07:11] LABS: HEMATOCRIT 28.9 % (42.0-52.0); HEMOGLOBIN 9.4 g/dl (13.5-18.0); MEAN CORPUSCULAR HEMOGLOBIN 31 pg (27.0-31.0)
[2020-07-13 07:41] VITALS: BP 129/76; PULSE 99; TEMP 99
--- NOTE | 2020-07-13 08:00 | NUR ---
Assessment complete. Patient relaxing in bed on entry. States he feels pretty good this morning. Patient is alert and oriented. Patient was repositioned at this time. Breakfast was ordered, patient set up to eat on its arrival. No complaints of pain or discomfort were expressed at this time. Urinal emptied at the bedside, rinsed per request. Port sote os CD&I, flushed and gurdeep without issue. Patient took PO medications well. No other needs were expressed from the patient at this time. Continuing to monitor. Call light is in reach.
[2020-07-13 09:49] LABS: BAND 11 % (0-10); BASOPHIL 3 % (0-2); EOSINOPHIL 1 % (0-4); LYMPHOCYTE 3 % (20.0-51.0); MICROCYTOSIS 1+; NEUTROPHILS 76 % (42.0-75.2); PLATELET ESTIMATE NORMAL (NORMAL)
[2020-07-13 09:50] LABS: HYPOCHROMIA 2+
[2020-07-13 11:09] VITALS: BP 128/73; PULSE 101; TEMP 98.1
--- NOTE | 2020-07-13 11:34 | NUR ---
Patient up to the restroom at this time as requested to have a bowel movement. Patient was up with walker and ambulated well to the restroom with minimal assistance. was there to assist as well but pt had no issues. PT showed up and helped pt out of the restroom to work with him. No other needs at this time. Will continue to monitor.
[2020-07-13 15:49] VITALS: BP 121/67; PULSE 95; TEMP 98.3
--- NOTE | 2020-07-13 15:58 | NUR ---
OT is recommending home health. PT states that they will continue to monitor. SW contacted the patient's , Cindy, to review d/c plan and to discuss OT's recommendation. Cindy reports that she is comfortable with the patient returning home and would be interested in home health. She was agreeable to [facility]. ADALBERTO contacted and faxed a referral to Kiarra at [facility]. Awaiting screen.
--- NOTE | 2020-07-13 16:42 | NUR ---
Kiarra, at [facility], reports that they are able to accept the patient for services.
--- NOTE | 2020-07-13 17:24 | NUR ---
Patient has had a good shift. He was up to the restroom to have a BM and ambulated very well with a walker. He has been repositioned in bed through out the day, mostly independently. He is eating dinner at this time. Pain is well managed with PRN [place]. No other needs at thsi time. Call light is in reach. Fall precautions are in place.
[2020-07-13 19:14] LABS: CALCIUM 7.8 mg/dL (8.4-10.2); CREATININE, serum 0.57 (0.66-1.25); POTASSIUM 3.4 mmol/L (3.4-5.0)
[2020-07-13 21:27] VITALS: BP 137/80; PULSE 101; TEMP 98
[2020-07-13 23:05] VITALS: BP 138/82; PULSE 105; TEMP 98.2
[2020-07-14 02:42] VITALS: BP 124/74; PULSE 103; TEMP 98.6
[2020-07-14 07:17] LABS: BASO % 0.3 % (0.0-2.0); EOS # 0.1 (0.0-0.7); EOS % 0.6 % (0-4.0); GRAN # 12.6 (1.4-6.5); GRAN % 86.6 % (42.2-75.2); LYMPH # 0.7 (1.2-3.4); LYMPH % 4.5 % (20.0-51.0); MEAN CELL VOLUME 95 fl (80.0-100.0); MEAN CORPUSCULAR HGB CONC 32 g/dl (33.0-37.0); MEAN PLATELET VOLUME 11.3 fl (7.4-10.4); MONO % 6.9 % (1.7-9.3); PLATELET COUNT 141 K/mm3 (130-400); RED BLOOD COUNT 3.08 M/mm3 (4.20-5.60); REDCELL DISTRIBUTION WIDTH-CV 16.1 % (11.5-14.5)
[2020-07-14 07:26] VITALS: BP 107/72; PULSE 117; TEMP 97.6
[2020-07-14 07:27] LABS: HEMATOCRIT 29.2 % (42.0-52.0); HEMOGLOBIN 9.4 g/dl (13.5-18.0); MEAN CORPUSCULAR HEMOGLOBIN 31 pg (27.0-31.0)
--- NOTE | 2020-07-14 07:55 | NUR ---
Assessment complete. Patient sitting in bed awake and alert at this time. requesting pain medication, PRN [place] given. Patient states he had a good night. Patient continues to use the urinal to void. Pt is hopeful to go home today. No other needs were expressed at this time. Will continue to monitor. Call light is in reach.
[2020-07-14 11:04] VITALS: BP 105/64; PULSE 98; TEMP 98.7
[2020-07-14 11:42] LABS: CALCIUM 7.9 mg/dL (8.4-10.2); CREATININE, serum 0.54 (0.66-1.25); POTASSIUM 3.4 mmol/L (3.4-5.0)
--- NOTE | 2020-07-14 15:56 | NUR ---
ADALBERTO was notified that Aruna, social work job titles at the [employer], called about the patient. ADALBERTO attempted to contact Aruna (ph#[phone]). ADALBERTO left her a voicemail.
--- NOTE | 2020-07-14 16:43 | NUR ---
Patient has had an uneventful shift. he has spent the second half of the day sitting up in recliner as he knows "it is good for him". He is aware of his POC after speaking with Dr. Castillo. Pain has been controlled all day with no issues. Port site remains CD&I. Continuing to monitor. Fall precautions are in place. Call light is in reach.
[2020-07-14 17:17] VITALS: BP 114/73; PULSE 103; TEMP 98.1
[2020-07-14 19:43] VITALS: BP 117/72; PULSE 98; TEMP 98.6
[2020-07-15] VITALS (7 sets, daily range): BP systolic 118–132; BP diastolic 69–86; PULSE 84–122; TEMP 97–99.7
--- NOTE | 2020-07-15 06:28 | NUR ---
PATIENT SLEPT ON AND OFF THROUGHOUT THE NIGHT. PRN PAIN MEDICATION ADMINISTERED REQUESTED BY PATIENT PER 'S ORDERS. LAB'S DRAWN THIS AM. NO REQUESTS OR CONCERNS VERBALIZED BY PATIENT AT THIS TIME.
[2020-07-15 07:39] LABS: BASO % 0.3 % (0.0-2.0); EOS # 0.1 (0.0-0.7); EOS % 0.5 % (0-4.0); GRAN # 12.2 (1.4-6.5); GRAN % 84.8 % (42.2-75.2); LYMPH # 0.7 (1.2-3.4); LYMPH % 4.8 % (20.0-51.0); MEAN CELL VOLUME 94 fl (80.0-100.0); MEAN CORPUSCULAR HGB CONC 33 g/dl (33.0-37.0); MEAN PLATELET VOLUME 11.5 fl (7.4-10.4); MONO # 1.2 (0.1-0.6); MONO % 8.6 % (1.7-9.3); PLATELET COUNT 180 K/mm3 (130-400); RED BLOOD COUNT 3.06 M/mm3 (4.20-5.60); REDCELL DISTRIBUTION WIDTH-CV 16.2 % (11.5-14.5)
[2020-07-15 07:54] LABS: CALCIUM 8.2 mg/dL (8.4-10.2); CREATININE, serum 0.5 (0.66-1.25); POTASSIUM 3.5 mmol/L (3.4-5.0)
[2020-07-15 07:57] LABS: HEMATOCRIT 28.9 % (42.0-52.0); HEMOGLOBIN 9.5 g/dl (13.5-18.0); MEAN CORPUSCULAR HEMOGLOBIN 31 pg (27.0-31.0)
--- NOTE | 2020-07-15 09:34 | NUR ---
PT RESTING IN BED. ASSISTED WITH BREAKFAST. AM MEDS GIVEN ORDERED. PT IS ON BOWEL PROTOCOLS. QUESTIONS ANSWERED. AM MEDS GIVEN ORDERD. PT RESTING IN BED. L
--- NOTE | 2020-07-15 18:38 | NUR ---
REPORT TO AISSATOU SANCHEZ.
[2020-07-16 04:41] VITALS: BP 128/64; PULSE 95; TEMP 97.5
[2020-07-16 06:49] LABS: BASO # 0.1 (0.0-0.2); BASO % 0.4 % (0.0-2.0); EOS # 0.1 (0.0-0.7); EOS % 0.5 % (0-4.0); GRAN # 11.9 (1.4-6.5); GRAN % 84.6 % (42.2-75.2); LYMPH # 0.6 (1.2-3.4); LYMPH % 4.5 % (20.0-51.0); MEAN CELL VOLUME 94 fl (80.0-100.0); MEAN CORPUSCULAR HGB CONC 32 g/dl (33.0-37.0); MEAN PLATELET VOLUME 11.2 fl (7.4-10.4); MONO # 1.3 (0.1-0.6); MONO % 8.9 % (1.7-9.3); PLATELET COUNT 215 K/mm3 (130-400); RED BLOOD COUNT 3.09 M/mm3 (4.20-5.60)
[2020-07-16 07:08] LABS: HEMOGLOBIN 9.4 g/dl (13.5-18.0); MEAN CORPUSCULAR HEMOGLOBIN 30 pg (27.0-31.0)
[2020-07-16 07:10] LABS: CALCIUM 8.1 mg/dL (8.4-10.2); CREATININE, serum 0.56 (0.66-1.25); POTASSIUM 3.4 mmol/L (3.4-5.0)
[2020-07-16 07:25] VITALS: BP 127/81; PULSE 100; TEMP 98.5
[2020-07-16] MEDS ORDERED: DIFLUCAN200 MG PO (07:34)
[2020-07-16] MEDS ORDERED: VENTOLIN0.09 MG IH (08:46)
[2020-07-16] MEDS ORDERED: NORCO 325 MG-51 TAB PO (08:47)
--- NOTE | 2020-07-16 09:37 | NUR ---
ADALBERTO was notified that the patient will need a FWW and that he is requesting a toliet riser. The patient is ready to d/c today. Aruna [place] director social service, returned ADALBERTO's phone call. ADALBERTO updated Aruna about the d/c plan for home health and the need for a FWW and a toliet riser. Aruna reports that the patient has been calling her about his equipment needs and [facility]. ADALBERTO met with the patient to update. His , Cindy, was on speaker phone. The patient and Cindy were agreeable to the plan. The patient requests a rolaider instead of a FWW. ADALBERTO attempted to update RUSTY Valdovinos director social service. ADALBERTO left her a voicemail. The patient is to discharge back home with his today, 07/16, with home health services for [facility]/PT/OT from [facility]. ADALBERTO notified and faxed d/c orders to Kiarra at [facility]. ADALBERTO faxed the patient's d/c orders and records to RUSTY Valdovinos director social service. ADALBERTO presented and read the IM form outloud to the patient. The patient verbalized understanding and gave ADALBERTO approval to sign the form on his behalf. ADALBERTO provided him with a copy. No additional needs at this time.
--- NOTE | 2020-07-16 12:52 | NUR ---
DISCHARGE INSTRUCTIONS REVIEWED WITH PT AND . QUESTIONS ANSWERED. PT TAKEN OUT TO CAR PER WHEEL CHAIR.
--- NOTE | 2020-07-16 14:02 | NUR ---
Primary nurse was assisted with [id number] patient care by [employer] student Catherine Ortega and [employer] instructor Katerin Bartholomew RN-.
[2020-08-17] MEDS ORDERED: ULTRAM 50MG TAB50 MG PO (21:13)
[2020-08-19] MEDS ORDERED: TRANSDERM-0.5 MG/21 TD (08:39)
[2020-08-19] MEDS ORDERED: DULCOLAX S10 MG/SUPP RC (08:40)
[2020-08-19] MEDS ORDERED: ATIVAN 1MG T1 MG/TAB PO (08:40)
[2020-08-19] MEDS ORDERED: ROXANOL 20MG20 MG/ML SL (08:40)
== END 2020-07-16 12:30 | disposition home health service (06) | DRG 870 ==
LOC: SDCO 12:13 → ICU 15:10 → MEDICAL 07-10 19:19
PROVIDERS: Family Medicine; Hospitalist; Internal Medicine Gastroenterology; Internal Medicine Pulmonary Disease; Physician Assistant; ADMIT Internal Medicine
PROC: 0BH17EZ Insertion of Endotracheal Airway into Trachea, Via Natural or Artificial Opening (ICD-10-PCS; 2020-07-03)
PROC: 03HY32Z Insertion of Monitoring Device into Upper Artery, Percutaneous Approach (ICD-10-PCS; 2020-07-03)
PROC: 5A09357 Assistance with Respiratory Ventilation, Less than 24 Consecutive Hours, Continuous Positive Airway Pressure (ICD-10-PCS; 2020-07-03)
PROC: 02HV33Z Insertion of Infusion Device into Superior Vena Cava, Percutaneous Approach (ICD-10-PCS; 2020-07-03)
PROC: 0BC18ZZ Extirpation of Matter from Trachea, Via Natural or Artificial Opening Endoscopic (ICD-10-PCS; 2020-07-03)
PROC: 0BCB8ZZ Extirpation of Matter from Left Lower Lobe Bronchus, Via Natural or Artificial Opening Endoscopic (ICD-10-PCS; 2020-07-03)
PROC: 0BC88ZZ Extirpation of Matter from Left Upper Lobe Bronchus, Via Natural or Artificial Opening Endoscopic (ICD-10-PCS; 2020-07-03)
PROC: 0BC68ZZ Extirpation of Matter from Right Lower Lobe Bronchus, Via Natural or Artificial Opening Endoscopic (ICD-10-PCS; 2020-07-03)
PROC: 0BC58ZZ Extirpation of Matter from Right Middle Lobe Bronchus, Via Natural or Artificial Opening Endoscopic (ICD-10-PCS; 2020-07-03)
PROC: 0D748DZ Dilation of Esophagogastric Junction with Intraluminal Device, Via Natural or Artificial Opening Endoscopic (ICD-10-PCS; 2020-07-03)
PROC: 5A1955Z Respiratory Ventilation, Greater than 96 Consecutive Hours (ICD-10-PCS; principal; 2020-07-03 14:00)
DX: A41.9 Sepsis, unspecified organism (principal); J69.0 Pneumonitis due to inhalation of food and vomit; J96.01 Acute respiratory failure with hypoxia; B37.1 Pulmonary candidiasis; C25.9 Malignant neoplasm of pancreas, unspecified; K31.1 Adult hypertrophic pyloric stenosis; E87.2 Acidosis; E87.1 Hypo-osmolality and hyponatremia; E87.3 Alkalosis; R65.20 Severe sepsis without septic shock; K20.90 Esophagitis, unspecified without bleeding; K21.9 Gastro-esophageal reflux disease without esophagitis; K31.89 Other diseases of stomach and duodenum; D69.6 Thrombocytopenia, unspecified; I10 Essential (primary) hypertension; E87.6 Hypokalemia; R73.9 Hyperglycemia, unspecified; D72.829 Elevated white blood cell count, unspecified
CPT/HCPCS: 99231-AI; 99232-AI; 99233-AI; 99239; A4314; C1769; C1876; C9113; J0330; J1450; J1650; J1720; J1815; J1956; J2060; J2405; J2543; J2704; J3010; J3475; J3480; J7030; J7050; J7060; J7120